=== PATIENT | female | born 1995 | race African-American/Black ===

== ENCOUNTER 2016-08-30 09:25 | Emergency (ER) | payer BC ==
[~2016-08-30] VITALS: Ht 154.9 cm; Wt 49.6 kg
[2016-08-30 09:29] VITALS: TEMP 37; Ht 154.9 cm; Wt 49.6 kg
[2016-08-30] MEDS ORDERED: OXYCODONE/ACETAMINOPHEN 5-325 TAB PO STA (10:04)
[2016-08-30] MEDS ORDERED: PENICILLIN V POTASSIUM 250 MG TAB PO ONE (10:15)
[2016-08-30] MEDS ORDERED: OXYC-57 PO (10:20)
[2016-08-30] MEDS ORDERED: PENI500T2 PO (10:20)
--- NOTE | 2016-08-30 10:21 | EMERGENCY ROOM VISIT NOTE ---
History Report prepared by Sonali: Tyesha Winter Under the Supervision of: Dr. Barrera Mckenna D.O. First contact with patient: 09:48 Chief Complaint: DENTAL PAIN Stated Complaint: GUM SWELLING, TOOTH PAIN Nursing Triage Summary: Triage note: Pt reports left upper gum swelling and pain. pt reports swelling started yesterday. pt reports she was seen by a dentist yesterday and was told "my gums are rejecting the cap." pt reports she had cap placed approx 5-6 years ago. History of Present Illness The patient is a 20 year old female who presents to the Emergency Room with complaints of persistent, worsening gum pain that began yesterday. She currently rates her discomfort as a 10/10 in severity. The patient states that she was seen by a dentist yesterday and notes that her gums are rejecting her caps. She states that she had her caps placed 5-6 years ago. The patient states that going to the dentist is not covered by her insurance. She states that her gum swelling is worsening. She denies any fever. The patient states that she tried using Oragel, but states that it just numbed her cheeks and didn' t receive relief of her symptoms. Source of History: patient Onset: yesterday Position: other (gum) Symptom Intensity: 10/10 Quality: other (swelling) Timing: worsening, other (persistent) Associated Symptoms: No fevers Review of Systems See HPI for pertinent positives & negatives. A total of 10 systems reviewed and were otherwise negative. Past Medical & Surgical No active medical problems Family History Cancer Social History Smoking Status: Never Smoker Smokeless Tobacco Use: No Alcohol Use: none Marital Status: single Occupation Status: employed Current/Historical Medications Scheduled Penicillin V Potassium (Veetids), 500 MG PO QID Scheduled PRN Oxycodone/Acetaminophen 5MG/325MG (Percocet 5MG/325MG), 1 TAB PO Q6H PRN for Pain Allergies Coded Allergies: No Known Allergies (Unverified , 08/30/16) Physical Exam Vital Signs Date Time Temp Pulse Resp B/P Pulse Ox O2 Delivery O2 Flow Rate FiO2 08/30/16 10:40 88 16 128/80 99 08/30/16 09:29 37.0 95 18 135/72 99 Room Air Physical Exam CONSTITUTIONAL/VITAL SIGNS: Reviewed / noted above. GENERAL: Non-toxic in appearance. INTEGUMENTARY: Warm, dry, and [place]. HEAD: Normocephalic. EYES: without scleral icterus or trauma. ENT/OROPHARYNX: Left upper molar and premolar are tender to palpation, no obvious swelling, or abscess no obvious dental decay. Otherwise normal oral exam. LYMPHADENOPATHY/NECK: Is supple without lymphadenopathy or meningismus. RESPIRATORY: Lungs clear and equal. CARDIOVASCULAR: Regular rate and rhythm. GI/ABDOMEN: Soft and nontender. No organomegaly or pulsatile mass. No rebound or guarding. Normal bowel sounds. EXTREMITIES: Warm and well perfused. BACK: No CVA tenderness. NEUROLOGICAL: Intact without focal deficits. PSYCHIATRIC: normal affect. MUSCULOSKELETAL: Normally developed with good muscle tone. Medical Decision & Procedures Medications Administered Medications (Trade) Dose Ordered Sig/Clark Route Start Time Stop Time Status Last Admin Dose Admin Penicillin V Potassium (Veetids Tab) 500 mg NOW ONCE PO 08/30/16 10:15 08/30/16 10:16 DC 08/30/16 10:39 500 MG Oxycodone/ Acetaminophen (Percocet 5-325mg Tab) 1 tab NOW STAT PO 08/30/16 10:04 08/30/16 10:05 DC 08/30/16 10:39 1 TAB ED Course 0955: Previous medical records were reviewed. The patient was evaluated in room A3. A complete history and physical examination was performed. I discussed the treatment plan with her and she verbalized complete understanding and agreement. She is ready to go home. 1004: Ordered Oxycodone/Acetaminophen 1 tab PO. 1015: Ordered Veetids Tab 500 mg PO. Medical Decision differential diagnosis: dental infection, dental abscess, facial cellulitis, gum infection. This is a 20-year-old female who presents to the ED with a chief complaint of dental pain. The patient has pain in the left upper dentition. The patient states that she has That Were Placed by Dentist in [place]. She Is Going to See the Dentist Tomorrow. She Has Had Increasing Pain over the past Several Days. She Denies Any Fevers. No Nausea or Vomiting. Her Exam Reveals No Facial Swelling. The Dentition Appears to Be Well Maintained. There Are The Left Upper Molar and Premolar Areas. There Is Some Receding Gums on the Medial Aspect of the period There Is No Significant Mucosal Edema Compared to the Opposing Side. The patient does not have any trismus. There is otherwise no abnormalities noted to the dentition or mucosa of the gums. There is no abscess. The patient was started on penicillin and given Percocet. She was given prescription for these. She will follow-up with her dentist tomorrow. [place] Drug Monitoring Program Search Results: patient reviewed within database, no issues identified Impression Primary Impression: Dentalgia Scribe Attestation The scribe's documentation has been prepared under my direction and personally reviewed by me in its entirety. I confirm that the note above accurately reflects all work, treatment, procedures, and medical decision making performed by me. Departure Information Dispostion Home / Self-Care Prescriptions Oxycodone/Acetaminophen 5MG/325MG (PERCOCET 5MG/325MG) Tab 1 TAB PO Q6H Y for Pain, #14 TAB Prov: Barrera Mckenna D.O. 08/30/16 Penicillin V Potassium (VEETIDS) 500 Mg Tab 500 MG PO QID, #40 TAB Prov: Barrera Mckenna D.O. 08/30/16 Referrals No Doctor, Assigned (PCP) Forms HOME CARE DOCUMENTATION FORM, IMPORTANT VISIT INFORMATION Patient Instructions [facility] Additional Instructions Penicillin as prescribed. Percocet as prescribed. No driving within 6 hours of use. Do not take additional Tylenol while taking Percocet. See your dentist tomorrow as scheduled.
[2016-08-30 10:40] VITALS: BP 128/80; PULSE 88; O2SAT 99
== END 2016-08-30 10:40 | disposition home or self-care (01) ==
LOC: C.EDB 09:27 → C.EDA 10:40
DX: K08.89 Other specified disorders of teeth and supporting structures (principal)